=== PATIENT | male | born 1940 | race Caucasian/White ===

== ENCOUNTER 2020-08-27 11:25 | Emergency (ER) | payer OTHER ==
[~2020-08-27] VITALS: Ht 172.7 cm; Wt 95.3 kg
[2020-08-27 11:49] VITALS: BP 126/68
--- NOTE | 2020-08-27 13:34 | NUR ---
PT TAKEN TO BED 12 VIA WHEELCHAIR, PLACED IN BED. 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 BED LOCKED AND IN LOWEST POSITION. SIDE RAILS X2.
--- NOTE | 2020-08-27 13:35 | NUR ---
RAD AT BEDSIDE
--- NOTE | 2020-08-27 13:35 | NUR ---
80 YO M BIB FAMILY FOR C/C OF L SHOULDER PAIN X2 DAYS AND BLOODY STOOL. PT STATES 0/10 PAIN AT THIS TIME. PT STATES HE HAD A STROKE 8 DAYS AGO AND IS EXPERIENCING L SIDED WEAKNESS POST STROKE. 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 BED LOCKED AND IN LOWEST POSITION. SIDE RAILS X2.
--- NOTE | 2020-08-27 13:39 | NUR ---
LAB AT BEDSIDE
--- NOTE | 2020-08-27 13:39 | NUR ---
EKG AT BEDSIDE
--- NOTE | 2020-08-27 14:00 | NUR ---
CHAPERONED WHILE ERMD PERFORMED RECTAL EXAM FOR BLOODY STOOL. NO BLOOD NOTED ON EXAMINATION.
[2020-08-27 14:44] LABS: BASOPHILS % (AUTO) 0.4 % (0.0-2.0); EOSINOPHILS # (AUTO) 0.1 K/uL (0-0.4); EOSINOPHILS % (AUTO) 1.6 % (0.0-4.0); HEMATOCRIT 46.5 % (36-52); HEMOGLOBIN 15.5 g/dL (12.0-18.0); LYMPHOCYTES # (AUTO) 1.7 K/uL (2.0-11.5); LYMPHOCYTES % (AUTO) 20.6 % (20.5-51.1); MEAN CORPUSCULAR HEMOGLOBIN 29 pg (27-31); MEAN CORPUSCULAR HGB CONC 33 g/dL (33-37); MEAN CORPUSCULAR VOLUME 87.9 fL (80-94); MONOCYTES # (AUTO) 0.6 K/uL (0.8-1.0); MONOCYTES % (AUTO) 7.6 % (1.7-9.3); NEUTROPHILS # (AUTO) 5.9 K/uL (1.8-7.7); NEUTROPHILS % (AUTO) 69.8 % (42.2-75.2); PLATELET COUNT (AUTO) 191 K/uL (140-450); RED BLOOD CELL COUNT(AUTO) 5.29 MIL/uL (4.20-6.10); RED CELL DISTRIBUTION WIDTH 14.5 % (11.6-13.7); WHITE BLOOD COUNT (AUTO) 8.4 K/uL (4.8-10.8)
[2020-08-27 15:00] LABS: PROTHROMBIN TIME 10.2 secs (10.8-13.4)
[2020-08-27 15:11] LABS: ALBUMIN 3.5 g/dL (3.4-5.0); ANION GAP 10.5 (8-16); ASPARTATE AMINOTRANSFERASE 32 U/L (15-37); CARBON DIOXIDE 30.3 mmol/L (21-32); CHLORIDE 107 mmol/L (98-107); CREATININE 1.1 mg/dL (0.6-1.3); GLUCOSE 111 mg/dL (74-106); POTASSIUM 3.8 mmol/L (3.5-5.1); SODIUM SERUM 144 mmol/L (136-145); TOTAL BILIRUBIN 0.8 mg/dL (0.0-1.0); UREA NITROGEN, BLOOD 23 mg/dL (7-18)
--- NOTE | 2020-08-27 15:30 | NUR ---
PT POSITIONED FOR COMFORT. GTUBE CLEANED DUE TO LEAK. FARMER TREE FRUIT AND NUT CROPS/PULSE OX IN PLACE. CALL LIGHT IN REACH. BED LOCKED AND IN LOWEST POSITION. SIDE RAILS X2.
--- NOTE | 2020-08-27 16:36 | NUR ---
Dr. Russ is evaluating the patient at bedside.
--- NOTE | 2020-08-27 17:00 | NUR ---
PT ASLEEP IN BED. EQUAL CHEST RISE AND FALL. BED LOCKED AND IN LOWEST POSITION. SIDE RAILS X2. CERTIFIED MEDICAL BILLER/PULSE OX IN PLACE.
[2020-08-27] MEDS ORDERED: CLOP75TA55 PO (17:08)
[2020-08-27] MEDS ORDERED: LISI-420 GT (17:08)
[2020-08-27] MEDS ORDERED: CARV25TA2 GT (17:09)
[2020-08-27] MEDS ORDERED: FURO40TA9 GT (17:09)
[2020-08-27] MEDS ORDERED: NUTR-813 GT (17:10)
[2020-08-27] MEDS ORDERED: FINA5TAB5 GT (17:10)
[2020-08-27] MEDS ORDERED: ATOR40TA40 GT (17:10)
[2020-08-27] MEDS ORDERED: CLOP75TA55 GT (17:11)
[2020-08-27] MEDS ORDERED: ASPI-1856 GT (17:11)
[2020-08-27] MEDS ORDERED: ONDANSETRON 4 MG/2 ML VIAL IVP PRN (17:15)
[2020-08-27] MEDS ORDERED: ACETAMINOPHEN 325 MG TAB PO PRN (17:15)
[2020-08-27] MEDS ORDERED: ZOLPIDEM 5 MG TAB PO PRN (17:15)
--- NOTE | 2020-08-27 17:30 | NUR ---
PARKER COLLECTED AND SENT TO LAB
--- NOTE | 2020-08-27 19:20 | NUR ---
REPORT GIVEN TO DM CLIFFORD. TRANSFER OF CARE AT THIS TIME.
--- NOTE | 2020-08-27 19:22 | NUR ---
RECEIVED REPORT FROM DM [facility]URA AND [facility].
[2020-08-27] MEDS: HYDROcodone/APAP 5/325 MG 1 TAB TAB PO PRN (19:29)
[2020-08-27] MEDS ORDERED: carvediloL 12.5 MG TAB PO SCH (21:00)
[2020-08-27 21:54] VITALS: BP 124/70
--- NOTE | 2020-08-27 21:54 | NUR ---
Patient to be transferred. Is being transferred due to FAMILY REQUEST. Receiving facility has accepting physician and available space. ER physician has signed transfer form. Patient or responsible democrat has agreed to transfer and signed form. Patient belongings inventoried and will be sent with patient. Copy of nursing notes, lab reports, EKG, Physicians Orders and X-rays to be sent with patient.
[2020-08-28] MEDS ORDERED: ATORVASTATIN 20 MG TAB PO SCH (09:00)
[2020-08-28] MEDS ORDERED: FUROSEMIDE 40 MG TAB GT SCH (09:00)
[2020-08-28] MEDS ORDERED: DOCUSATE SODIUM 100 MG GELCAP PO SCH (09:00)
[2020-08-28] MEDS ORDERED: FINASTERIDE 5 MG TAB GT SCH (09:00)
[2020-08-28] MEDS ORDERED: lisinopriL 20 MG TAB GT SCH (09:00)
[2020-08-28] MEDS ORDERED: ECOTRIN 81 MG TABEC PO SCH (09:00)
[2020-08-28] MEDS ORDERED: CLOPIDOGREL 75 MG TAB GT SCH (09:00)
== END 2020-08-27 21:00 ==
LOC: MED 11:25
DX: I69.354 Hemiplegia and hemiparesis following cerebral infarction affecting left non-dominant side (principal); Z73.6 Limitation of activities due to disability; Z20.828 Contact with and (suspected) exposure to other viral communicable diseases
CPT/HCPCS: 36415; 71045; 73030; 80053; 84484; 85025; 85610; 93005; 99285